=== PATIENT | male | born 2000 | race Caucasian/White ===

== ENCOUNTER 2021-04-25 10:25 | Outpatient (REF) | payer SELFPAY ==
[2021-04-25 13:32] LABS: Binax Internal Control QC Valid; Binax Now Covid-19 Ag Positive (Negative)
== END 2021-04-25 10:26 | disposition home or self-care (01) ==
LOC: HO.LAB 10:25
PROVIDERS: Visit Provider Internal Medicine
DX: Z20.822 Contact with and (suspected) exposure to COVID-19 (principal)
CPT/HCPCS: C9803

== ENCOUNTER 2021-12-15 04:05 | Emergency (ER) | payer BC, MEDICAID, SELFPAY ==
[2021-12-15 04:22] VITALS: BP 136/85; PULSE 67; RESP 16; TEMP 36.9; O2SAT 100; BMI 28.5
[2021-12-15 06:06] VITALS: BP 145/102; PULSE 78; RESP 18; TEMP 36.5; O2SAT 99
[2021-12-15] MEDS: Rabies Vaccine (PCEC)/PF 1 ML VIAL IM (06:35)
[2021-12-15] MEDS: Rabies Immune Globulin/PF 900 UNIT/3 ML VIAL 1651.08 UNIT IM (06:36)
--- NOTE | 2021-12-15 06:40 | ED.SKABFB ---
HPI - Skin/Abscess/Foreign Bdy General Chief complaint: Skin/Abscess/Foreign Body Stated complaint: cuts on hands and arms Time Seen by Provider: 12/15/21 05:17 Source: patient Mode of arrival: ambulatory Limitations: no limitations History of Present Illness HPI narrative: Patient comes to the emergency room complaining of multiple cat scratch wounds and multiple cat bites. Patient states that he was trying to rescue to CT strays. The catheter tacked the patient, scratching, bit him, then the runoff. Patient has no information regarding this trays. Patient denies fever chills, no joint pain Related Data Previous Rx's Medication Instructions Recorded amoxicillin 500 mg-potassium 1 tab PO BID #20 tabs 12/15/21 clavulanate 125 mg tablet (Augmentin) Allergies Allergy/AdvReac Type Severity Reaction Status Date / Time No Known Allergies Allergy Verified 12/15/21 06:18 Review of Systems Review of Systems: Constitutional : No Weight loss, No Fever, No Chills, No Night Sweats, No Fatigue, No Malaise ENT/Mouth : No Hearing loss, No Ear Pain, No Nasal Congestion, No Sinus Pain, No Hoarseness, No sore throat, No Rhinorrhea, No Swallowing Difficulty Eyes: No Eye Pain, No Swelling, No Redness, No Foreign Body, No Discharge, No Vision Changes Cardiovascular : No Chest Pain, No SOB, No Dyspnea on Exertion, No Orthopnea, No Edema, No Palpitations Respiratory : No Cough, No Sputum, No Wheezing, No Smoke Exposure, No Dyspnea Gastrointestinal : No Nausea, No Vomiting, No Diarrhea, No Constipation, No abdominal Pain, No Hematochezia, No Melena Genitourinary : no irregular bleeding, No Dysuria, No Urinary Frequency, No Hematuria, No Urinary Incontinence, No Urgency, No Flank Pain, No Urinary Flow Changes, No Hesitancy Musculoskeletal : No joint pain, No Myalgias, No Joint Swelling Skin : Patient has multiples cat scratch wounds to the forearms bilaterally and multiple puncture wounds/cat bites the arms Neuro : No Weakness, No Numbness, No Paresthesias, No Loss of Consciousness, No Dizziness, No Headache Psych : No Anxiety/Panic, No Depression, No SI/HI/AH/VH, No Social Issues, Heme/Lymph: No Bruising, No Bleeding,No Lymphadenopathy Endocrine : No Polyuria, No Polydipsia, No Temperature Intolerance Physical Exam Vital Signs: Vital Signs: Last Vital Signs Temp 97.7 F 12/15/21 06:06 Pulse 78 12/15/21 06:06 Resp 18 12/15/21 06:06 BP 145/102 H 12/15/21 06:06 Pulse Ox 99 12/15/21 06:06 O2 Del Method 12/15/21 06:06 BMI result Body Mass Index 28.5 Const: Other: Appearance: Alert. Oriented X3. No acute distress. Eyes: Pupils equal, round and reactive to light. ENT: Pharynx normal. Neck: Normal inspection. Neck supple. No lymph nodes noted. No crepitus CVS: Normal heart rate and rhythm. Pulses normal. Normal S1 and S2 Respiratory: No respiratory distress. Breath sounds normal. No Wheezing. No rales Abdomen: Soft and nontender. No rigidity. No distention. Skin: Patient has multiple scratches and puncture wounds to both arms/forearms. Patient does not need sutures Extremities: No lower extremity edema. No Lacerations. No Rash Neuro: Oriented X 3. No motor deficit. No sensory deficit. Moving all extremities. No slurred speech. CN 2 through 12 grossly intact Psych: calm, cooperative, normal affect Course Course Course Narrative: I discussed with the patient that since we do not know anything about this cats, he should be getting rabies immunoglobulin as well as immunization series and antibiotics. Patient agrees with plan. Patient states that he received his tetanus shot approximately 1 month ago. He is up-to-date. Discharge Plan Discharge Clinical Impression: Cat bite, Cat scratch of forearm Patient Disposition: Home, Self-Care Instructions: Rabies Vaccine (By injection), Rabies Immune Globulin (By injection) Additional Instructions: Please follow-up with your primary care physician tomorrow. If you have any worsening or new symptoms, please return to the emergency room or call 911 Prescriptions: New amoxicillin-pot clavulanate [Augmentin] 500-125 mg tablet 1 tab PO BID Qty: 20 0RF
[2021-12-15] MEDS: Amoxicillin/Potassium Clav 875 MG TABLET PO (06:42)
== END 2021-12-15 07:11 | disposition home or self-care (01) ==
LOC: HO.ED 07:09
PROVIDERS: Emergency Provider Emergency Medicine
DX: S50.871A Other superficial bite of right forearm, initial encounter (principal); S61.452A Open bite of left hand, initial encounter; S61.451A Open bite of right hand, initial encounter; S60.512A Abrasion of left hand, initial encounter; S60.511A Abrasion of right hand, initial encounter; M79.602 Pain in left arm; M79.601 Pain in right arm; W55.01XA Bitten by cat, initial encounter; Y93.9 Activity, unspecified; Y92.009 Unspecified place in unspecified non-institutional (private) residence as the place of occurrence of the external cause; Y99.9 Unspecified external cause status; Z20.3 Contact with and (suspected) exposure to rabies; Z29.14 Encounter for prophylactic rabies immune globulin; Z79.899 Other long term (current) drug therapy
CPT/HCPCS: 90375; 90471; 90675; 96372; 99283; 99284